=== PATIENT | male | born 1980 | race African-American/Black ===

== ENCOUNTER 2025-09-03 15:40 | Emergency (ER) | payer OTHER ==
[~2025-09-03] VITALS: Ht 172.7 cm; Wt 97.5 kg
[2025-09-03 16:25] LABS: PLATELET COUNT (AUTO) 395 K/uL (152-348); RED BLOOD CELL COUNT(AUTO) 4.11 MIL/uL (4.06-5.63); RED CELL DISTRIBUTION WIDTH 12.9 % (12.1-16.2); WHITE BLOOD COUNT (AUTO) 10.7 K/uL (3.6-10.2)
[2025-09-03 16:26] LABS: *BILIRUBIN,URIN 1+ (NEGATIVE); *BLOOD, URINE NEGATIVE (NEGATIVE); *CLARITY,URINE CLEAR (CLEAR); *COLOR,URINE DARK YELLOW (YELLOW); *KETONES,URINE TRACE (NEGATIVE); *PROTEIN,URINE 1+ (NEGATIVE); *UROBILINOGEN,URINE 8.0 E.U./dl (NORMAL); LEUKOCYTE ESTERASE ,URINE NEGATIVE (NEGATIVE); NITRITE, URINE NEGATIVE (NEGATIVE); UGLUCOSE NEGATIVE (NEGATIVE)
[2025-09-03 16:31] LABS: CREATININE 1.3 mg/dL (0.6-1.3); SODIUM SERUM 140.0 mmol/L (136-145); UREA NITROGEN, BLOOD 13.0 mg/dL (7-18)
[2025-09-03 16:37] LABS: ASPARTATE AMINOTRANSFERASE 16.0 U/L (15-37); TOTAL PROTEIN, SERUM 8.3 g/dL (6.4-8.2)
[2025-09-03] MEDS: IV NORMAL SALINE 1000 ML BAG IV ONE ×2 (16:46→18:02)
[2025-09-03 16:52] LABS: SQUAMOUS EPITHELIAL CELL,UR FEW /HPF (NONE SEEN)
[2025-09-03 16:56] LABS: *OCCULT BLOOD STOOL NEGATIVE (NEGATIVE)
[2025-09-03] MEDS ORDERED: IOHEXOL 300MG/ML 100 ML INFUS..BTL ONE (17:21)
[2025-09-03] MEDS ORDERED: SWABABLE VALVE TRANSFER SET EA MC ONE (17:21)
[2025-09-03] MEDS ORDERED: IV NORMAL SALINE 250 ML IV ONE (17:21)
[2025-09-03] MEDS ORDERED: DICY20TA11 PO (18:16)
[2025-09-03] MEDS ORDERED: LEVO750T46 PO (18:16)
[2025-09-03] MEDS ORDERED: ONDA-104 PO (18:16)
[2025-09-03] MEDS ORDERED: PHEN-704 PO (18:16)
[2025-09-03 18:58] VITALS: BP 159/100; O2SAT 98
== END 2025-09-03 19:09 | disposition home or self-care (01) ==
LOC: ER 15:40
DX: R10.30 Lower abdominal pain, unspecified (principal); N39.0 Urinary tract infection, site not specified; N32.89 Other specified disorders of bladder; E86.0 Dehydration
CPT/HCPCS: 99285; 74177; 96360; 96361; 82270; 80076; 80048; 81001; 83690; 85025; 87086; 36415; 93005; Q9967; J7040 ×2; A4606; A4663